=== PATIENT | female | born 1940 ===

== ENCOUNTER 2022-06-22 11:40 | Emergency (ER) | payer MEDICARE, OTHER ==
[2022-06-22] MEDS ORDERED: Benzonatate 100 MG Cap ONE (12:00)
== END 2022-06-22 12:26 | disposition home or self-care (01) ==
LOC: LB.ED 11:40
DX: J06.9 Acute upper respiratory infection, unspecified (principal)
CPT/HCPCS: 99281; 99283; A9270-GY

== ENCOUNTER 2023-05-01 18:09 | Emergency (ER) | payer MEDICARE, OTHER ==
[2023-05-01] MEDS ORDERED: Sodium Chloride 0.9% 10 ML Syringe FLUSH PRN (18:22)
[2023-05-01 18:27] LABS: HEMATOCRIT 43.2 % (37.0-47.0); HEMOGLOBIN 14.2 g/dL (11.5-16.5); MEAN CORPUSCULAR HEMOGLOBIN 29.9 pg (27.0-32.0); MEAN CORPUSCULAR HGB CONC 32.9 g/dL (31.0-35.0); MEAN PLATELET VOLUME 11.3 fL (6.0-10.0); RED BLOOD CELL COUNT 4.75 M/uL (3.80-5.80); RED CELL DISTRIBUTION WIDTH 14.7 % (11.0-16.0); WHITE BLOOD CELL COUNT,WBC 5.5 K/uL (4.0-11.0)
[2023-05-01 18:42] LABS: PHOSPHORUS 3.1 mg/dL (2.5-4.9)
[2023-05-01 18:46] LABS: BLOOD UREA NITROGEN,BUN 18 mg/dL (8-26); BUN/CREATININE RATIO 11.8 (6-25); CALCIUM 9.1 mg/dL (8.5-10.1); CARBON DIOXIDE,CO2 27.3 mmol/L (21.0-32.0); CHLORIDE,CL 106 mmol/L (98-107); CREATININE 1.53 mg/dL (0.55-1.02); ESTIMATED GFR 33 mL/min (>60); GLUCOSE RANDOM 142 mg/dL (74-100); POTASSIUM,K 4.3 mmol/L (3.5-5.1); SODIUM,NA 140 mmol/L (136-145); TROPONIN I HIGH SENSITIVITY 7.5 pg/ml (<=60.4)
== END 2023-05-01 19:30 | disposition home or self-care (01) ==
LOC: LB.ED 18:09
DX: G61.0 Guillain-Barre syndrome (principal); I10 Essential (primary) hypertension; Z79.899 Other long term (current) drug therapy
CPT/HCPCS: 36415; 70450; 80048; 83735; 84100; 84484; 85027; 93005; 99285

== ENCOUNTER 2023-05-15 14:47 | Emergency (ER) | payer MEDICARE, OTHER ==
[2023-05-15 15:58] LABS: BASOPHILS ABSOLUTE AUTO 0.05 K/uL (0.02-0.10); BASOPHILS PERCENT AUTO 0.4 % (0.0-0.5); EOSINOPHILS ABSOLUTE AUTO 0.05 K/uL (0.04-0.40); EOSINOPHILS PERCENT AUTO 0.4 % (1.0-5.0); HEMATOCRIT 46.4 % (37.0-47.0); HEMOGLOBIN 15.5 g/dL (11.5-16.5); LYMPHOCYTES ABSOLUTE AUTO 0.89 K/uL (1.50-4.00); LYMPHOCYTES PERCENT AUTO 7.4 % (20.0-40.0); MEAN CORPUSCULAR HGB CONC 33.4 g/dL (31.0-35.0); MEAN CORPUSCULAR VOLUME 90 fL (76-96); MEAN PLATELET VOLUME 11.2 fL (6.0-10.0); MONOCYTES ABSOLUTE AUTO 0.58 K/uL (0.20-0.80); MONOCYTES PERCENT AUTO 4.8 % (3.0-10.0); NEUTROPHILS ABSOLUTE AUTO 10.43 K/uL (2.00-7.50); PLATELET COUNT,PLT 211 K/uL (150-500); RED BLOOD CELL COUNT 5.16 M/uL (3.80-5.80); RED CELL DISTRIBUTION WIDTH 14.5 % (11.0-16.0)
[2023-05-15 16:33] LABS: ALANINE AMINOTRANSFERASE,ALT 32 U/L (12-78); ALBUMIN 3.7 g/dL (3.4-5.0); ALKALINE PHOSPHATASE 125 U/L (46-116); ANION GAP 6.4 mmol/L (5.0-15.0); ASPARTATE AMNIOTRANSFERASE,AST 27 U/L (15-37); BILIRUBIN TOTAL 0.5 mg/dL (0.0-1.0); BLOOD UREA NITROGEN,BUN 28 mg/dL (8-26); BUN/CREATININE RATIO 18.9 (6-25); CARBON DIOXIDE,CO2 25.4 mmol/L (21.0-32.0); CHLORIDE,CL 101 mmol/L (98-107); CREATININE 1.48 mg/dL (0.55-1.02); ESTIMATED GFR 35 mL/min (>60); GLUCOSE RANDOM 128 mg/dL (74-100); LIPASE 30 U/L (16-77); POTASSIUM,K 4.8 mmol/L (3.5-5.1); PROTEIN TOTAL,TP 7.3 g/dL (6.4-8.2); SODIUM,NA 128 mmol/L (136-145); TROPONIN I HIGH SENSITIVITY 5.7 pg/ml (<=60.4)
[2023-05-15 16:34] LABS: APPEARANCE,URINE CLEAR (CLEAR); BILIRUBIN,URINE NEGATIVE (NEGATIVE); COLOR,URINE YELLOW; GLUCOSE,URINE NEGATIVE (NEGATIVE); KETONES,URINE NEGATIVE (NEGATIVE); LEUKOCYTE ESTERASE,URINE NEGATIVE (NEGATIVE); NITRITE,URINE NEGATIVE (NEGATIVE); OCCULT BLOOD,URINE NEGATIVE (NEGATIVE); PROTEIN,URINE TRACE mg/dL (NEGATIVE); UROBILINOGEN,URINE 0.2 E.U./dL (0.2-1.0)
[2023-05-15 16:41] LABS: RBC,URINE 0-5 /HPF; SQUAMOUS EPITHELIAL CELLS,UR MANY /HPF; WBC,URINE 0-5 /HPF
[2023-05-15 16:49] LABS: PTT,PARTIAL THROMBOPLSTIN TIME 27.3 SECONDS (24.4-33.2)
[2023-05-15] MEDS ORDERED: Sodium Chloride 0.9% 1,000 ML IV ONE ×2 (17:06→18:02)
[2023-05-15] MEDS ORDERED: Sodium Chloride 0.9% 50 ML IV ONE ×2 (17:11→17:12)
[2023-05-15] MEDS ORDERED: Sodium Chloride 0.9% 10 ML Syringe FLUSH ONE ×2 (17:11→17:12)
[2023-05-15] MEDS ORDERED: Iopamidol 755 Mg/ML 100 ML Bottle IV SCH (17:15)
[2023-05-15] MEDS ORDERED: Iopamidol 612 MG/ML 100 ML Bottle IV SCH (17:15)
== END 2023-05-15 18:59 | disposition home or self-care (01) ==
LOC: LB.ED 14:47
DX: K52.9 Noninfective gastroenteritis and colitis, unspecified (principal); K64.4 Residual hemorrhoidal skin tags; I10 Essential (primary) hypertension; Z79.02 Long term (current) use of antithrombotics/antiplatelets; Z20.822 Contact with and (suspected) exposure to COVID-19
CPT/HCPCS: 36415; 74174; 80053; 81001; 83605; 83690; 84484; 85025; 85610; 85730; 93005; 96360; 99285; J3490; J7030; Q9967; U0002